=== PATIENT | male | born 1975 | race Two or more races ===

== ENCOUNTER 2021-03-24 09:16 | Emergency (ER) | payer MEDICAID, OTHER ==
[~2021-03-24] VITALS: Ht 172.7 cm; Wt 83.9 kg
[2021-03-24] MEDS ORDERED: LIDOCAINE 1% HCL (LOCAL ANESTH.) INJ 20ML MDV IJ ONE (11:00)
[2021-03-24 11:02] VITALS: BP 137/77
[2021-03-24] MEDS ORDERED: cefTRIAXone SOD 1,000 MG VL IM ONE (11:45)
[2021-03-24] MEDS ORDERED: TETANUS-DIPTH-ACEL PERTUSSIS 0.5ML SYR Tdap IM ONE (11:45)
== END 2021-03-24 12:44 | disposition home or self-care (01) ==
LOC: ER 09:16
DX: S62.633A Displaced fracture of distal phalanx of left middle finger, initial encounter for closed fracture (principal); S61.313A Laceration without foreign body of left middle finger with damage to nail, initial encounter; W22.8XXA Striking against or struck by other objects, initial encounter; Y93.89 Activity, other specified; Y92.89 Other specified places as the place of occurrence of the external cause; Y99.8 Other external cause status
CPT/HCPCS: 12002; 73140; 90471; 90715; 96372; 99284; J0696

== ENCOUNTER 2021-03-26 14:37 | Emergency (ER) | payer MEDICAID, OTHER ==
[~2021-03-26] VITALS: Ht 172.7 cm; Wt 83.9 kg
[2021-03-26 14:37] VITALS: BP 122/75
== END 2021-03-26 16:19 | disposition home or self-care (01) ==
LOC: ER 14:37
DX: S62.633A Displaced fracture of distal phalanx of left middle finger, initial encounter for closed fracture (principal); W22.8XXA Striking against or struck by other objects, initial encounter; Y93.89 Activity, other specified; Y92.89 Other specified places as the place of occurrence of the external cause; Y99.8 Other external cause status
CPT/HCPCS: 29130

== ENCOUNTER 2022-06-28 21:44 | Emergency (ER) | payer MEDICAID ==
[~2022-06-28] VITALS: Ht 175.3 cm; Wt 84.0 kg
[2022-06-29 03:36] VITALS: BP 117/69
[2022-06-29] MEDS ORDERED: AMOX-277 PO (04:58)
== END 2022-06-29 05:08 | disposition home or self-care (01) ==
LOC: ER 21:49
DX: S80.12XA Contusion of left lower leg, initial encounter (principal); W54.0XXA Bitten by dog, initial encounter; Y93.89 Activity, other specified; Y92.89 Other specified places as the place of occurrence of the external cause; Y99.8 Other external cause status
CPT/HCPCS: 93971